=== PATIENT | female | born 1980 | race Hispanic/Latino ===

== ENCOUNTER → 2016-03-25 | Outpatient (REF) | payer BC ==
[2016-03-25 19:26] LABS: BASO # 0.2 K/mm3 (0.0-0.2); BASO % 2.4 % (0.0-1.0); EOS # 0.1 K/mm3 (0.0-0.50); LARGE UNSTAINED CELL # 0.1 K/mm3 (0.0-0.4); LARGE UNSTAINED CELL % 1.1 % (0.0-4.0); LYMPH # 1.2 K/mm3 (1.5-4.5); LYMPH % 13.5 % (24.0-44.0); MEAN CORPUSCULAR HEMOGLOBIN 32.2 pg (27.0-33.0); MEAN CORPUSCULAR HGB CONC 33.9 g/dl (32.0-36.5); MEAN CORPUSCULAR VOLUME 95.2 fl (80.0-96.0); MONO # 0.4 K/mm3 (0.0-0.8); MONO % 4.3 % (0.0-5.0); NEUTROPHILS # 6.5 K/mm3 (1.8-7.7); NEUTROPHILS % 77.7 % (36.0-66.0); PLATELET COUNT, AUTOMATED 176 k/mm3 (150-450); RED CELL DISTRIBUTION WIDTH 12.5 % (11.5-14.5); WHITE BLOOD COUNT 8.4 K/mm3 (4.0-10.0)
[2016-03-26 08:40] LABS: HIV SCRN NEGATIVE (NEGATIVE); HIV SCRN1 NEGATIVE (NEGATIVE)
[2016-03-26 08:41] LABS: CONTROL LINE INT CTR LINE PRESENT
[2016-03-27 10:00] LABS: HBsAg Prenatal NEGATIVE (NEGATIVE)
== END ==
LOC: M LABDRWCV 16:41
PROVIDERS: ATTEND Obstetrics & Gynecology
DX: Z34.81 Encounter for supervision of other normal pregnancy, first trimester (principal)

== ENCOUNTER → 2016-03-26 | Outpatient (REF) | payer BC | LOC: M LABDRWCV 16:16 | PROVIDERS: ATTEND Obstetrics & Gynecology | DX: Z34.81 Encounter for supervision of other normal pregnancy, first trimester (principal) ==

== ENCOUNTER → 2016-05-03 | Outpatient (REF) | payer BC | LOC: M LAB REF 11:18 | PROVIDERS: ATTEND Advanced Practice Midwife | DX: Z34.01 Encounter for supervision of normal first pregnancy, first trimester (principal) ==

== ENCOUNTER → 2016-06-18 | Outpatient (CLI) | payer BC ==
--- NOTE | 2016-06-19 06:06 | REP ---
Clinical: Anatomical evaluation. Comparison: None . Findings: Examination demonstrates a single live intrauterine in the breech presentation. motion is identified by technologist. Placenta is noted posteriorly and grade zero without evidence for placenta previa or abruption. Right fundal fibroid measures 6 cm maximal diameter; left lower uterine segment fibroid measures 4.1 cm. Amniotic fluid volume is normal. Cervix measures 4.7 cm in length and appears closed. No evidence for nuchal cord. Gestational age by LMP 19 weeks 3 days with STEFANIE 10/09/2016 . Gestational age by current measurements 19 weeks 5 day with STEFANIE 11/07/2016 . FHR equals 150 beats per minute. BPD 4.7 cm 20 weeks 1 day HC 17.5 cm 20 weeks 0 days AC 13.9 cm 19 weeks 2 days FL 3.2 cm 20 weeks 0 days HL 3.1 cm 20 weeks 0 day HC/AC ratio 1.26 Estimated weight 309 grams ( 58th percentile). Anatomical assessment demonstrates normal structures including cranium, choroid plexus, cavum, cerebellum/posterior fossa, facial features, lungs, diaphragm, stomach, cord insertion/three-vessel cord, kidneys/bladder, spine, and extremities. Limited evaluation of the heart/ventricular outflow tracts Impression: 1. Single live intrauterine in breech presentation demonstrating appropriate interval growth. 2. Uterine fibroids. 3. Limited evaluation of the heart and ventricular outflow tracts with otherwise normal anatomical assessment. Signed by Jayden Rodgers MD 06/19/2016 05:58 A
== END ==
LOC: M SMT 14:58
PROVIDERS: ATTEND Advanced Practice Midwife
DX: Z36 Encounter for antenatal screening of mother (principal); Z3A.19 19 weeks gestation of pregnancy; D25.9 Leiomyoma of uterus, unspecified

== ENCOUNTER → 2016-07-17 | Outpatient (CLI) | payer BC ==
--- NOTE | 2016-07-17 14:52 | REP ---
Clinical: Anatomical evaluation. Comparison: 06/18/2016 . Findings: Examination demonstrates a single live intrauterine in cephalic presentation. motion is identified by technologist. Placenta is noted anteriorly and grade zero without evidence for placenta previa or abruption. Amniotic fluid volume is normal. Cervix measures 4.7 cm in length and appears closed. Fibroids again noted and unchanged. No evidence for nuchal cord. Gestational age by LMP 23 weeks 4 days with STEFANIE 11/09/2016 . Gestational age by current measurements 24 weeks 0 days with STEFANIE 11/06/2016 . FHR equals 141 beats per minute. Estimated weight 666 grams ( 61st percentile). Anatomical assessment demonstrates normal structures including cranium, choroid plexus, cavum, cerebellum/posterior fossa, facial features, lungs, four-chamber heart/ventricular outflow tracts, diaphragm, stomach, cord insertion/three-vessel cord, bladder, spine, and extremities. Mild renal pelviectasis (right greater than left) may warrant followup. Impression: Single live intrauterine in cephalic presentation demonstrating appropriate interval growth. In conjunction with prior examination anatomical assessment is complete and relatively normal. Current examination suggests mild renal pelviectasis which may warrant follow-up examination. Signed by Jayden Rodgers MD 07/17/2016 02:43 P
== END ==
LOC: M SMT 13:07
PROVIDERS: ATTEND Advanced Practice Midwife
DX: Z36 Encounter for antenatal screening of mother (principal); Z3A.24 24 weeks gestation of pregnancy

== ENCOUNTER → 2016-08-07 | Outpatient (REF) | payer BC ==
[2016-08-08 12:27] LABS: CREATININE, SERUM 0.5 MG/DL (0.6-1.0)
[2016-08-08 13:45] LABS: CREATININE CLEARANCE, URINE 149.2 ML/MIN (75-115)
== END ==
LOC: M LAB REF 11:45
PROVIDERS: ATTEND Obstetrics & Gynecology
DX: O13.3 Gestational [pregnancy-induced] hypertension without significant proteinuria, third trimester (principal)

== ENCOUNTER → 2016-08-08 | Outpatient (REF) | payer BC ==
[2016-08-08 11:29] LABS: MEAN CORPUSCULAR HEMOGLOBIN 33.3 pg (27.0-33.0); MEAN CORPUSCULAR HGB CONC 34.4 g/dl (32.0-36.5); MEAN CORPUSCULAR VOLUME 96.8 fl (80.0-96.0); RED CELL DISTRIBUTION WIDTH 12.6 % (11.5-14.5); WHITE BLOOD COUNT 8.3 K/mm3 (4.0-10.0)
[2016-08-08 11:59] LABS: ALBUMIN 2.9 GM/DL (3.2-5.2); ALBUMIN/GLOBULIN RATIO 0.83 (1.00-1.93); ALKALINE PHOSPHATASE 72 U/L (45-117); ALT/SGPT 17 U/L (12-78); ANION GAP 7 MEQ/L (8-16); AST/SGOT 16 U/L (15-37); BILIRUBIN,TOTAL 0.3 MG/DL (0.2-1.0); BLOOD UREA NITROGEN 8 MG/DL (7-18); CALCIUM LEVEL 8.4 MG/DL (8.5-10.1); CARBON DIOXIDE LEVEL 24 MEQ/L (21-32); CHLORIDE LEVEL 103 MEQ/L (98-107); CREATININE FOR GFR 0.46 MG/DL (0.55-1.02); GLOMERULAR FILTRATION RATE > 60.0 (>60); GLUCOSE, FASTING 175 MG/DL (70-105); POTASSIUM SERUM 3.9 MEQ/L (3.5-5.1); SODIUM LEVEL 134 MEQ/L (136-145); TOTAL PROTEIN 6.4 GM/DL (6.4-8.2); URIC ACID 2.8 MG/DL (2.6-6.0)
== END ==
LOC: M LABDRAWC 11:11
PROVIDERS: ATTEND Obstetrics & Gynecology
DX: Z34.82 Encounter for supervision of other normal pregnancy, second trimester (principal)

== ENCOUNTER → 2016-09-12 | Outpatient (CLI) | payer BC ==
--- NOTE | 2016-09-12 13:56 | REP ---
OBSTETRIC SONOGRAPHY: HISTORY: 30+ weeks for growth. Comparison study July 17, 2016. FINDINGS: Scanning through the gravid uterus demonstrates a viable single intrauterine gestation in a cephalic lie. heart rate is recorded 141 beats per minute. A posterior placenta is seen without evidence of previa. Amniotic fluid is subjectively normal. CHUCK is normal at 11.5 cm. S/D ratio in the umbilical cord artery by Doppler is normal at 2.96. Previously noted fibroids are again seen today on the right measuring 3.5 x 2.8 x 2.7 and on the left measuring 3.1 x 2.4 x 3.2 cm. There has been appropriate interval growth. Normal cranium, face and profile, lungs, four-chamber heart, diaphragm, kidneys and bladder are seen today. Biometry Chart: BPD 8.2 cm = 33 weeks 1 day HC 29.2 cm = 32 weeks 2 days AC 27.1 cm = 31 weeks 1 day FL 6.1 cm = 31 weeks 5 days HL 5.6 cm = 32 weeks 2 days CD 4.4 cm = 34 weeks 1 day HC/AC ratio normal 1.08 Cephalic index normal 0.8. Estimated weight 1797 grams, 3 pounds 15 ounces, 40th percentile for 31 weeks 5 days. IMPRESSION: Viable single intrauterine gestation at 31 weeks 4 days by today's composite sonographic criteria. Expected gestational age estimate based on prior sonography is 31 weeks 5 days. There is appropriate interval growth. Uterine fibroids again seen. Signed by Zev Berger MD 09/12/2016 04:41 P
== END ==
LOC: M SMT 10:53
PROVIDERS: ATTEND Obstetrics & Gynecology
DX: O13.3 Gestational [pregnancy-induced] hypertension without significant proteinuria, third trimester (principal); Z3A.31 31 weeks gestation of pregnancy

== ENCOUNTER → 2016-09-12 | Outpatient (CLI) | payer BC | LOC: MERGE 09:10 → M SMT 09:10 | PROVIDERS: ATTEND Obstetrics & Gynecology | DX: O13.3 Gestational [pregnancy-induced] hypertension without significant proteinuria, third trimester (principal); Z53.9 Procedure and treatment not carried out, unspecified reason ==

== ENCOUNTER → 2016-10-07 | Outpatient (CLI) | payer BC ==
--- NOTE | 2016-10-07 11:00 | REP ---
Obstetric ultrasound for growth: There is a single intrauterine gestation in a vertex presentation. The heart rate is 133 beats per minute. The placenta is posterior. There is no placenta previa. The amniotic fluid volume subjectively is normal. The amniotic fluid index is 11.2 (7.8 - 24.9). The gestational age by the the ultrasound today is 34 weeks 5 days with an STEFANIE of 11/13/2016. Gestational age by the first ultrasound during this gestation is 35 weeks 2 days and by LMP is 35 weeks 2 days. weight is 2542 grams (5 pounds, 9 ounces). This is the 42nd percentile for 35 weeks 2 days. Umbilical artery Doppler assessment: SD ratio 2.65. Resistive index 0.63 Diastolic flow velocity 17.0 cm/sec. These values are in their normal ranges. Signed by Pablo Pugh MD 10/07/2016 10:52 A
== END ==
LOC: M SMT 09:48
PROVIDERS: ATTEND Obstetrics & Gynecology
DX: Z36 Encounter for antenatal screening of mother (principal); Z3A.34 34 weeks gestation of pregnancy; O13.3 Gestational [pregnancy-induced] hypertension without significant proteinuria, third trimester

== ENCOUNTER → 2017-09-03 | Outpatient (CLI) | payer BC ==
[2017-09-03 17:41] LABS: BASO % 0.3 % (0.0-1.0); EOS # 0.1 10^3/uL (0.0-0.50); EOS % 1.1 % (0.0-3.0); HEMATOCRIT 39.9 % (36.0-47.0); HEMOGLOBIN 13.6 g/dl (12.0-15.5); IMMATURE GRANULOCYTE % 0.3 % (0-3.0); LYMPH # 1.2 10^3/uL (1.5-4.5); LYMPH % 15.2 % (24.0-44.0); MEAN CORPUSCULAR HEMOGLOBIN 32.3 pg (27.0-33.0); MEAN CORPUSCULAR HGB CONC 34.1 g/dl (32.0-36.5); MEAN CORPUSCULAR VOLUME 94.8 fl (80.0-96.0); MONO # 0.6 10^3/uL (0.0-0.8); NEUTROPHILS % 75.1 % (36.0-66.0); PLATELET COUNT, AUTOMATED 191 10^3/uL (150-450); RED BLOOD COUNT 4.21 10^6/uL (4.00-5.40); RED CELL DISTRIBUTION WIDTH 11.9 % (11.5-14.5)
[2017-09-03 18:14] LABS: HBsAg Prenatal NEGATIVE (NEGATIVE); RUBELLA IgG QUALITATIVE IMMUNE (IMMUNE)
[2017-09-03 18:42] LABS: HIV 1&2 SCREEN CENTAUR NEGATIVE (NEGATIVE)
[2017-09-03 18:42] LABS: HEPATITIS C VIRUS ABY INDEX 0.1 INDEX (<0.8)
[2017-09-03 21:24] LABS: CHLAMYDIA DNA AMPLIFICATION NEGATIVE (NEGATIVE); GC DNA AMPLIFICATION NEGATIVE (NEGATIVE)
== END ==
LOC: M SMT 13:50
DX: Z36.89 Encounter for other specified antenatal screening (principal)
CPT/HCPCS: 86762

== ENCOUNTER → 2017-11-13 | Outpatient (CLI) | payer BC | LOC: M SMT 14:17 | DX: Z34.82 Encounter for supervision of other normal pregnancy, second trimester (principal); Z36.89 Encounter for other specified antenatal screening; Z3A.19 19 weeks gestation of pregnancy | CPT/HCPCS: 76811 ==

== ENCOUNTER → 2018-01-12 | Outpatient (CLI) | payer BC ==
[2018-01-12 13:28] LABS: BASO % 0.1 % (0.0-1.0); EOS # 0.1 10^3/uL (0.0-0.50); EOS % 0.7 % (0.0-3.0); HEMATOCRIT 37.1 % (36.0-47.0); HEMOGLOBIN 12.5 g/dl (12.0-15.5); IMMATURE GRANULOCYTE % 0.4 % (0-3.0); LYMPH # 0.9 10^3/uL (1.5-4.5); LYMPH % 12.8 % (24.0-44.0); MEAN CORPUSCULAR HGB CONC 33.7 g/dl (32.0-36.5); MEAN CORPUSCULAR VOLUME 97.9 fl (80.0-96.0); MONO # 0.4 10^3/uL (0.0-0.8); MONO % 5.7 % (0.0-5.0); NEUTROPHILS # 5.7 10^3/uL (1.8-7.7); NEUTROPHILS % 80.3 % (36.0-66.0); PLATELET COUNT, AUTOMATED 132 10^3/uL (150-450); RED BLOOD COUNT 3.79 10^6/uL (4.00-5.40); RED CELL DISTRIBUTION WIDTH 12.9 % (11.5-14.5); WHITE BLOOD COUNT 7.1 10^3/uL (4.0-10.0)
[2018-01-12 13:44] LABS: GLUCOSE CHALLENGE TEST 1 HOUR 169 MG/DL (LESS THAN 140)
== END ==
LOC: M SMT 07:59
DX: O09.522 Supervision of elderly multigravida, second trimester (principal); Z3A.00 Weeks of gestation of pregnancy not specified
CPT/HCPCS: 82950

== ENCOUNTER → 2018-01-20 | Outpatient (CLI) | payer BC ==
[2018-01-20 09:00] LABS: GLUCOSE, FASTING 84 MG/DL (LESS THAN 95)
[2018-01-20 10:27] LABS: 1 HR GLUCOSE 143 MG/DL (LESS THAN 180)
[2018-01-20 11:07] LABS: 2 HR GLUCOSE 164 MG/DL (LESS THAN 155)
[2018-01-20 12:35] LABS: 3 HR GLUCOSE 103 MG/DL (LESS THAN 140)
== END ==
LOC: M LAB 08:13
DX: O09.522 Supervision of elderly multigravida, second trimester (principal); Z3A.00 Weeks of gestation of pregnancy not specified
CPT/HCPCS: 82951

== ENCOUNTER → 2018-01-29 | Outpatient (REF) | payer BC | LOC: M LAB REF 13:10 | DX: N90.7 Vulvar cyst (principal) | CPT/HCPCS: 87184 ==

== ENCOUNTER → 2018-01-29 | Outpatient (REF) | payer BC | LOC: M LAB REF 13:34 | DX: N90.7 Vulvar cyst (principal) | CPT/HCPCS: 87255 ==

== ENCOUNTER → 2018-03-09 | Outpatient (REF) | payer BC ==
[~2018-03-09] MED LIST: IBUP-1114 PO; MAPA500T2 PO; PRENTAB9 PO
[2018-03-09 14:20] LABS: TOTAL PROTEIN,RANDOM URINE 33.7 MG/DL (0.0-12.0)
== END ==
LOC: M LAB REF 12:47
PROVIDERS: ATTEND Advanced Practice Midwife
DX: Z34.83 Encounter for supervision of other normal pregnancy, third trimester (principal); Z36.85 Encounter for antenatal screening for Streptococcus B

== ENCOUNTER → 2018-03-09 | Outpatient (CLI) | payer BC ==
[2018-03-09 18:07] LABS: ALT/SGPT 14 U/L (12-78); BILIRUBIN,TOTAL 0.3 MG/DL (0.2-1.0); CREATININE FOR GFR 0.55 MG/DL (0.55-1.30); GLOMERULAR FILTRATION RATE > 60.0 (>60); LDH LACTATE DEHYDROGENASE 202 U/L (84-246); URIC ACID 4.5 MG/DL (2.6-6.0)
[2018-03-09 18:25] LABS: HEMATOCRIT 40.7 % (36.0-47.0); HEMOGLOBIN 13.4 g/dl (12.0-15.5); MEAN CORPUSCULAR HEMOGLOBIN 32.2 pg (27.0-33.0); MEAN CORPUSCULAR HGB CONC 32.9 g/dl (32.0-36.5); MEAN CORPUSCULAR VOLUME 97.8 fl (80.0-96.0); PLATELET COUNT, AUTOMATED 139 10^3/uL (150-450); RED BLOOD COUNT 4.16 10^6/uL (4.00-5.40); WHITE BLOOD COUNT 6.2 10^3/uL (4.0-10.0)
== END ==
LOC: M SMT 13:17
PROVIDERS: ATTEND Advanced Practice Midwife
DX: O16.3 Unspecified maternal hypertension, third trimester (principal)

== ENCOUNTER → 2018-03-11 | Outpatient (CLI) | payer BC ==
--- NOTE | 2018-03-12 01:51 | REP ---
Clinical: Maternal hypertension for well being Comparison: 03/11/2018 . Findings: Examination demonstrates a single live intrauterine in cephalic presentation. motion is identified by technologist. Placenta is noted fundal and grade II without evidence for placenta previa or abruption. Amniotic fluid volume is normal. Cervix appears closed. No evidence for nuchal cord. Gestational age by LMP 36 weeks 5 days with STEFANIE 04/03/2018 . Gestational age by first US measurements 36 weeks 2 days with STEFANIE 04/06/2018 . FHR equals 131 beats per minute. Biophysical profile score: 8/8 Amniotic fluid index: 13.3 cm (7.4 - 24.1) Umbilical cord SD ratio: 2.40 (1.60 - 2.60). Estimated weight 2805 grams ( 40th percentile based on LMP and current measurements; 29 to percentile based on age by first ultrasound ). Limited anatomical assessment demonstrates normal four-chamber heart and left cardiac ventricular outflow views Impression: 1. Single live intrauterine in cephalic presentation demonstrating appropriate interval growth. 2. Biophysical profile score and amniotic fluid volume normal range. Electronically Signed by Jayden Rodgers MD 03/12/2018 01:43 A
== END ==
LOC: M SMT 10:01
PROVIDERS: ATTEND Advanced Practice Midwife
DX: O13.4 Gestational [pregnancy-induced] hypertension without significant proteinuria, complicating childbirth (principal)

== ENCOUNTER 2018-03-13 06:52 | Inpatient (IN) | payer BC ==
[2018-03-13] VITALS (35 sets, daily range): BP systolic 112–148; BP diastolic 65–99
[~2018-03-13] VITALS: Ht 154.9 cm; Wt 67.9 kg
[2018-03-13] MEDS ORDERED: LACTATED RINGER'S 1000 ML IV STA (07:49)
--- NOTE | 2018-03-13 08:15 | HPEPDOC ---
Obstetrical History & Physical General Date of Admission Mar 13, 2018 at 06:52 History of Present Illness Chief Complaint: Gestational Hypertension, Induction of labor Information Provided By: Patient Age: 37 : 2 Term: 1 Pre-term: 0 Abortions: 0 Livin Care Care: Good Care Dating Final EDC: Apr 03, 2018 Final EDC by: LMP EGA at Admission: 37 Antepartum Course Diagnos(e)s AMA, uterine fibroids, varicosities, gestational HTN Past Medical History Past Obstetrical History : Past Obstetrical History: Primgravida Type of Delivery: Spontaneous Vaginal Del. (09/2016) Sex of Infant: Male (5#9) Complications: Yes (preeclampsia) [employer] History: Uterine fibroids Past Medical History Medical History childhood asthma Surgical History: Denies/None Family History Significant Family History: Diabetes, Hypertension Social History Marital Status: Family situation: Spouse/partner home Psychosocial History: No pertinent psych hx * Smoker: non-smoker Alcohol: Denies Drugs: denies Imunizations Tdap status: current Allergies Coded Allergies: No Known Drug Allergy (Unverified Allergy, Unknown, NONE, 09/26/16) Medications Scheduled Multivitamins/ ( 27-0.8 mg) 1 Tab Tab, 1 TAB PO DAILY Scheduled PRN Acetaminophen (Mapap) 500 Mg Tab, 1,000 MG PO Q6HP PRN for PAIN Ibuprofen (Ibuprofen) 400 Mg Tab, 800 MG PO Q8HP PRN for PAIN Physical Examination Physical Examination GENERAL: Alert and oriented times three. BREAST: . ABDOMEN: Gravid and non-tender to touch. FETUS: Is vertex (VTX) by sterile vaginal examination (SVE), fetus is vertex (VTX) by Grant. HEART RATE: Regular rate and rhythm. LUNGS: Clear to auscultation (CTA). EXTREMITIES: No edema. No clonus. Deep tendon reflexes (DTRs) + 2. Laboratory Data 24H LABS Laboratory Tests 2 03/13/18 07:00: Serology Scanned Report Hepatitis B Testing Pertinent Laboratoy Data Blood Type: O+ RBC Antibody Screen: Negative HIV: Negative Hepatitis B: Negative Hepatitis C: Negative Rapid Plasma Reagin: Nonreactive Rubella: Immune Chlamydia/Gonorrhea: Negative Group B Streptococcus: Positive Quad Screen Test: Declined Glucose Tolerance Test: 169 (3hr 84,143,164,103) Anatomy Ultrasound Ultrasound Date: Nov 13, 2017 Placenta Location: Posterior Normal Anatomy: Yes Placenta Previa: No Estimated Weight (grams): 353 Other Ultrasounds 09/03/17 9w3d STEFANIE 04/05/18 Steroid Therapy Steroid Therapy: No Vaginal Examination Dilation: 2cm (-3) Effacement: 80% Station: -3 Cervical Consistency: Medium Cervical Position: Posterior Presentation: Cephalic presentation Assessment Heart Rate (FHR): 140 Variability: Moderate Accelerations: Positive Decelerations: None Tocometer Contractions: Yes Frequency: irregular Strength: palpated as mild Multi-drug resistant Organism: No history of MDRO Assessment/Plan Assessment Rachel is a 37-year-old (G)2 para (P)1-0-0-1 at 37 weeks by 9-week ultrasound. Presents to Labor and Delivery (L&D) for induction of labor due to gestational hypertension. History significant for previous delivered @ 37+ gestation for preeclampsia. Denies regular UC, LOF or bleeding. Fetus is very active. Plan Admit and orient per consult Dr Morillo Gut Carrier and consent. Diet: regular. Group B Streptococcus (GBS) positive. Labs and intravenous (IV) per unit protocol. Counseled on misoprostol, Pitocin and induction of labor (IOL). Lactated Ringers (LR): Bolus 500 mL, then saline lock. Pt is planning epidural for labor coping Anticipate normal spontaneous delivery (). C-S as appropriate. Reyna Langley CNM Mar 13, 2018 08:15
[2018-03-13] MEDS: miSOPROStol 50 MCG 1/2 TAB (S0191) PO SCH ×4 (08:43→20:00)
[2018-03-13 08:48] LABS: HEMATOCRIT 38.2 % (36.0-47.0); HEMOGLOBIN 12.9 g/dl (12.0-15.5); MEAN CORPUSCULAR HGB CONC 33.8 g/dl (32.0-36.5); MEAN CORPUSCULAR VOLUME 94.8 fl (80.0-96.0); PLATELET COUNT, AUTOMATED 121 10^3/uL (150-450); RED BLOOD COUNT 4.03 10^6/uL (4.00-5.40)
[2018-03-13 09:10] LABS: ALT/SGPT 14 U/L (12-78); BILIRUBIN,TOTAL 0.3 MG/DL (0.2-1.0); CREATININE FOR GFR 0.49 MG/DL (0.55-1.30); GLOMERULAR FILTRATION RATE > 60.0 (>60); LDH LACTATE DEHYDROGENASE 188 U/L (84-246); URIC ACID 4.3 MG/DL (2.6-6.0)
[2018-03-13] MEDS ORDERED: OXYTOCIN DRIP 30 UNITS in APPROPRIATE DILUENT 1 EA IV SCH (16:45)
[2018-03-13] MEDS: LR 1,000 ML IV SCH ×2 (18:44→20:54)
[2018-03-13] MEDS ORDERED: PENICILLIN G POTASSIUM IV 5 MU in D5W MINI-BAG PLUS 100 ML IV SCH (18:45)
[2018-03-13] MEDS ORDERED: FENTANYL 2MCG/ML ROPIVACAINE 0.2% IN 0.9% NACL 100ML IVBAG As Ordered ONE (21:11)
[2018-03-13] MEDS ORDERED: REFRIGERATOR IV KEYS XX PRN (22:45)
[2018-03-13] MEDS ORDERED: EPIDURAL COMMENT XX SCH (22:45)
[2018-03-13] MEDS ORDERED: diphenhydrAMINE INJ 50MG/ML VIAL (J1200) IV PRN (22:45)
[2018-03-13] MEDS ORDERED: ONDANSETRON 4MG/2ML VIAL (J2405) IV PRN (22:45)
[2018-03-13] MEDS ORDERED: EPIDURAL/PCA KEYS XX PRN (22:45)
[2018-03-13] MEDS ORDERED: FENTANYL/ROPIVACAINE/NACL BAG 100 ML EPIDURAL SCH (22:45)
[2018-03-13] MEDS ORDERED: LACTATED RINGER'S 1000 ML IV PRN (22:45)
[2018-03-13] MEDS ORDERED: ePHEDrine SULFATE 25 MG/5 ML(5MG/ML) SYRINGE IV PRN (22:45)
[2018-03-13] MEDS ORDERED: PENICILLIN G POTASSIUM IV 2.5 MU in APPROPRIATE DILUENT 1 EA IV SCH ×2 (22:45→23:00)
[2018-03-13] MEDS ORDERED: NALOXONE INJ 0.4 MG/1 ML VIAL (J2310) IV PRN (22:45)
--- NOTE | 2018-03-13 22:53 | IPNPDOC ---
Text Note Date of Service The patient was seen on 03/13/18. NOTE Pitocin started 184, now @ 6mu Comfortable with epidural UC 2-4 minutes apart x 45-60 sec FH Cat I, baseline 145 SVE 4+/90/-2, midline AROM small amount clear fluid Anticipate NSVB VS,Fishbone, I+O VS, Fishbone, I+O Laboratory Tests 03/13/18 08:26 Aspartate Amino Transf (AST/SGOT) 19, Alanine Aminotransferase (ALT/SGPT) 14, Lactate Dehydrogenase 188, Total Bilirubin 0.3, Uric Acid 4.3 03/13/18 08:27 Red Blood Count 4.03, Mean Corpuscular Volume 94.8, Mean Corpuscular Hemoglobin 32.0, Mean Corpuscular Hemoglobin Concent 33.8, Red Cell Distribution Width 12.3 Vital Signs Date Time Temp Pulse Resp B/P (MAP) Pulse Ox O2 Delivery O2 Flow Rate FiO2 03/13/18 21:39 80 137/99 (112) 03/13/18 20:11 99.0 18 Reyna Langley CNM Mar 13, 2018 22:53
[2018-03-13] MEDS ORDERED: METHYLERGONOVINE MALEATE 0.2 MG/ML VIAL (J2210) As Ordered ONE ×2 (22:57→23:28)
[2018-03-13] MEDS ORDERED: CARBOPROST TROMETHAMINE 250 MCG/ML AMP As Ordered ONE (22:58)
[2018-03-14] VITALS (11 sets, daily range): BP systolic 123–148; BP diastolic 64–78
--- NOTE | 2018-03-14 01:14 | DNPDOC ---
[facility] Delivery Note Delivery Note DATE OF DELIVERY: 03/14/18 PREDELIVERY DIAGNOSIS: 37-1/7 weeks' gestation and labor. POST DELIVERY DIAGNOSIS: Delivered. PROCEDURE: Spontaneous vaginal delivery. PROVIDER: Reyna Langley CNM ANESTHESIA: Epidural. ESTIMATED BLOOD LOSS: 600 mL. FINDINGS: 7 pound 1 ounce, 3200gm male infant, Score 9/9, nuchal cord times 1 tight. DELIVERY SUMMARY: Patient is a 37-year-old 2 now para 2-0-0-2 who was admitted to labor and delivery for induction of labor at term due to gestational hypertension. She received misoprostol followed by pitocin and labor progressed. She utilized an epidural for labor coping. AROM clear fluid 2247. FD 0025. Viable male delivered NORM via somersault maneuver through tight nuchal cord @ 0035. Spontaneous respirations with stimulation, transitioned on maternal abdomen. Cord gases obtained and pending. Cord doubly clamped and cut by FOB under my direction once pulsations ceased. Apgars 9/9. Placenta jang, intact with 3 v cord @ 0041 followed by brisk bleeding. Fundus massaged, IV pitocin bolus and misoprostol 1000mcg IL provided excellent control of bleeding. EBL 600ml. 2nd perineal laceration repaired in usual fashion with 3-0 vicryl rapide. wt 7#1, 3200gm. Parents are naming their son Duc. Sponge, sharp and instrument count correct. Reyna Langley CNM Mar 14, 2018 01:14
[2018-03-14] MEDS ORDERED: MOM 30ML SUSPENSION UDC PO PRN (01:15)
[2018-03-14] MEDS ORDERED: DOCUSATE SODIUM 100 MG CAP PO PRN (01:15)
[2018-03-14] MEDS ORDERED: ANUSOL HC CREAM 30GM TOP PRN (01:15)
[2018-03-14] MEDS ORDERED: METHYLERGONOVINE MALEATE 0.2 MG TAB PO PRN (01:15)
[2018-03-14] MEDS ORDERED: IBUPROFEN 800 MG TAB PO PRN (01:15)
[2018-03-14] MEDS ORDERED: RHOGAM 300 MCG (1500 IU) INJ (J2790) IM SCH (01:15)
[2018-03-14] MEDS ORDERED: miSOPROStol 200 MCG TAB (S0191) PR ONE (01:15)
[2018-03-14] MEDS ORDERED: DIBUCAINE 1% OINTMENT 30GM TOP PRN (01:15)
[2018-03-14] MEDS ORDERED: MEASLES,MUMPS,RUBELLA VACCINE INJ (MMR-II) (90707) SC SCH (01:15)
[2018-03-14 01:55] LABS: CORD GAS ABE A -4.2; CORD GAS HCO3 A 24.9 MEQ/L; CORD GAS O2 SAT A 67.1 %; CORD GAS PH A 7.222 UNITS; CORD GAS PO2 A 32.3 mmHg; CORD GAS SBC A 20.2 MEQ/L; CORD GAS TCO2 A 26.8 MEQ/L
[2018-03-14] MEDS: PRENATAL VITAMINS CHEWABLE TABLET PO SCH (07:53)
[2018-03-14] MEDS ORDERED: INFLUENZA QUADRIVALENT PF VACCINE 0.5ML SYRINGE (90686) IM ONE (17:00)
[2018-03-14] MEDS: ACETAMINOPHEN 500 MG TAB PO PRN (19:57)
[2018-03-15 02:00] VITALS: BP 133/71
[2018-03-15 05:42] VITALS: BP 123/74
[2018-03-15] MEDS: PRENATAL VITAMINS CHEWABLE TABLET PO SCH (08:30)
[2018-03-15 14:02] VITALS: BP 124/81
[2018-03-15 18:15] VITALS: BP 137/85
[2018-03-15 22:27] VITALS: BP 145/83
[2018-03-16 02:34] VITALS: BP 142/84
[2018-03-16 06:03] VITALS: BP 137/91
[2018-03-16] MEDS: ACETAMINOPHEN 500 MG TAB PO PRN (06:17)
[2018-03-16] MEDS: PRENATAL VITAMINS CHEWABLE TABLET PO SCH (09:02)
== END 2018-03-16 14:45 | disposition home or self-care (01) | DRG 560 ==
LOC: M LDI 06:52 → M OBS 03-14 03:02
PROVIDERS: ADMIT Advanced Practice Midwife; ATTEND Advanced Practice Midwife
PROC: 3E033VJ Introduction of Other Hormone into Peripheral Vein, Percutaneous Approach (ICD-10-PCS; 2018-03-13)
PROC: 3E0DXGC Introduction of Other Therapeutic Substance into Mouth and Pharynx, External Approach (ICD-10-PCS; 2018-03-13)
PROC: 10E0XZZ Delivery of Products of Conception, External Approach (ICD-10-PCS; principal; 2018-03-14)
PROC: 0KQM0ZZ Repair Perineum Muscle, Open Approach (ICD-10-PCS; 2018-03-14)
PROC: 10907ZC Drainage of Amniotic Fluid, Therapeutic from Products of Conception, Via Natural or Artificial Opening (ICD-10-PCS; 2018-03-14)
DX: O13.4 Gestational [pregnancy-induced] hypertension without significant proteinuria, complicating childbirth (principal); Z37.0 Single live birth; Z3A.37 37 weeks gestation of pregnancy; O99.820 Streptococcus B carrier state complicating pregnancy; O69.89X0 Labor and delivery complicated by other cord complications, not applicable or unspecified; O70.1 Second degree perineal laceration during delivery; O09.513 Supervision of elderly primigravida, third trimester

== ENCOUNTER → 2018-12-30 | Outpatient (REF) | payer BC | LOC: M SFHCCLAY 08:11 | PROVIDERS: ATTEND Family Medicine | DX: Z13.1 Encounter for screening for diabetes mellitus (principal); Z83.3 Family history of diabetes mellitus ==

== ENCOUNTER → 2019-08-03 | Outpatient (REF) | payer BC | LOC: M PLALAB 14:40 | PROVIDERS: ATTEND Obstetrics & Gynecology | DX: Z01.419 Encounter for gynecological examination (general) (routine) without abnormal findings (principal) | CPT/HCPCS: 87624; G0123 ==

== ENCOUNTER → 2019-09-01 | Outpatient (CLI) | payer BC ==
--- NOTE | 2019-09-01 10:58 | REPMRS ---
Patient History The patient states she had a clinical breast exam in July 2019. Patient had first child at age 35. Family history of lymphoma in paternal grandmother. Taking hormonal contraceptives for 3 years. Patient states she had a mammogram over 10 years ago in [place] that was negative and no longer available. 3D TOMOSYNTHESIS WAS PERFORMED. [facility] lifetime risk for breast cancer is 16.6%. ANDREE Meehan. Digital Woman Screen Mammo: September 01, 2019 - Exam #: [id number] Bilateral CC and MLO view(s) were taken. Technologist: Karolina Bhatia, Technologist No prior studies available for comparison. FINDINGS: The breast tissue is heterogeneously dense. This may lower the sensitivity of mammography. There is a moderate amount of residual fibroglandular tissue which is fairly symmetric. There is no dominant mass, areas of architectural distortion, or clustered microcalcification typical of malignancy. Assessment: BI-RADS/ACR category 1 mammogram. Negative Mammogram. Recommendation Routine screening mammogram in 1 year (for women over age 40). This mammogram was interpreted with the aid of an FDA-approved computer-aided dectection system. Electronically Signed By: Pablo Avelar MD 09/01/19 [id number]
== END ==
LOC: M WHC 09:40
PROVIDERS: ATTEND Advanced Practice Midwife
DX: Z12.31 Encounter for screening mammogram for malignant neoplasm of breast (principal); Z79.3 Long term (current) use of hormonal contraceptives

== ENCOUNTER → 2020-08-25 | Outpatient (REF) | payer BC ==
[2020-08-25 11:37] LABS: HEMATOCRIT 42.7 % (36.0-47.0); HEMOGLOBIN 14.2 g/dl (12.0-15.5); MEAN CORPUSCULAR HEMOGLOBIN 32.1 pg (27.0-33.0); MEAN CORPUSCULAR HGB CONC 33.3 g/dl (32.0-36.5); MEAN CORPUSCULAR VOLUME 96.6 fl (80.0-96.0); PLATELET COUNT, AUTOMATED 197 10^3/uL (150-450); RED BLOOD COUNT 4.42 10^6/uL (4.00-5.40); WHITE BLOOD COUNT 7.3 10^3/uL (4.0-10.0)
[2020-08-25 12:08] LABS: ALBUMIN 3.9 GM/DL (3.2-5.2); ALT/SGPT 20 U/L (12-78); BILIRUBIN,TOTAL 0.4 MG/DL (0.2-1.0); BLOOD UREA NITROGEN 13 MG/DL (7-18); CALCIUM LEVEL 8.8 MG/DL (8.5-10.1); CARBON DIOXIDE LEVEL 28 MEQ/L (21-32); CHLORIDE LEVEL 104 MEQ/L (98-107); CHOLESTEROL LEVEL 161 MG/DL (<200); CREATININE FOR GFR 0.78 MG/DL (0.55-1.30); GLOMERULAR FILTRATION RATE > 60.0 (>60); GLUCOSE, FASTING 91 MG/DL (70-100); HDL CHOLESTEROL 50 MG/DL (>40); LDL CHOLESTEROL 96 MG/DL (<100); NON-HDL-C 111 MG/DL; POTASSIUM SERUM 3.7 MEQ/L (3.5-5.1); SODIUM LEVEL 140 MEQ/L (136-145); TOTAL PROTEIN 7.3 GM/DL (6.4-8.2); TRIGLYCERIDES LEVEL 75 MG/DL (<150)
[2020-08-25 12:22] LABS: HEPATITIS B SURFACE ANTIGEN NEGATIVE (NEGATIVE)
[2020-08-25 12:51] LABS: HIV 1&2 SCREEN CENTAUR NEGATIVE (NEGATIVE)
== END ==
LOC: M SFHCCLAY 08:21
PROVIDERS: ATTEND Physician Assistant
DX: Z02.1 Encounter for pre-employment examination (principal)

== ENCOUNTER → 2021-05-16 | Outpatient (REF) | payer BC | LOC: M SFHCCLAY 14:51 | PROVIDERS: ATTEND Family Medicine | DX: I11.9 Hypertensive heart disease without heart failure (principal); Z53.9 Procedure and treatment not carried out, unspecified reason ==

== ENCOUNTER → 2021-05-24 | Outpatient (REF) | payer BC ==
[2021-05-24 12:09] LABS: BLOOD UREA NITROGEN 11 MG/DL (7-18); CALCIUM LEVEL 9.1 MG/DL (8.5-10.1); CARBON DIOXIDE LEVEL 28 MEQ/L (21-32); CHLORIDE LEVEL 105 MEQ/L (98-107); GLOMERULAR FILTRATION RATE > 60.0 (>60); GLUCOSE, FASTING 94 MG/DL (70-100); POTASSIUM SERUM 3.9 MEQ/L (3.5-5.1); SODIUM LEVEL 139 MEQ/L (136-145)
== END ==
LOC: M SFHCCLAY 08:12
PROVIDERS: ATTEND Family Medicine
DX: I11.9 Hypertensive heart disease without heart failure (principal)

== ENCOUNTER → 2021-08-14 | Outpatient (REF) | payer BC | LOC: M PLALAB 16:04 | PROVIDERS: ATTEND Obstetrics & Gynecology | DX: Z12.4 Encounter for screening for malignant neoplasm of cervix (principal) | CPT/HCPCS: 87624; G0123 ==

== ENCOUNTER → 2021-10-19 | Outpatient (CLI) | payer BC | LOC: M WHC 13:36 | PROVIDERS: ATTEND Obstetrics & Gynecology | DX: Z12.31 Encounter for screening mammogram for malignant neoplasm of breast (principal) ==